=== PATIENT | female | born 1985 | race Caucasian/White ===

== ENCOUNTER 2017-10-21 14:12 | Emergency (ER) | payer SELFPAY ==
[2017-10-21] MEDS: LIDOCAINE WITH 8.4% SOD BICARB 3 ML DISP.SYRIN. INJ (13:40)
[2017-10-22 14:33] LABS: CHLAMYDIA PROBE Negative (Negative); GC PROBE Negative (Negative)
== END 2017-10-21 16:20 | disposition left against medical advice (07) ==
LOC: ER 14:12
DX: L02.411 Cutaneous abscess of right axilla (principal); N89.8 Other specified noninflammatory disorders of vagina; K21.9 Gastro-esophageal reflux disease without esophagitis; F17.210 Nicotine dependence, cigarettes, uncomplicated; Z88.6 Allergy status to analgesic agent
CPT/HCPCS: 10060; 87071; 87075; 87491; 87591; 99284; Q0111

== ENCOUNTER 2019-08-25 12:04 | Emergency (ER) | payer SELFPAY ==
[2017-10-21 14:48] VITALS: BP 117/72
== END 2019-08-25 12:11 | disposition left against medical advice (07) ==
LOC: ER 12:04
DX: S89.90XA Unspecified injury of unspecified lower leg, initial encounter (principal); Z53.21 Procedure and treatment not carried out due to patient leaving prior to being seen by health care provider; V29.88XA Motorcycle rider (driver) (passenger) injured in other specified transport accidents, initial encounter; Y93.89 Activity, other specified; Y92.488 Other paved roadways as the place of occurrence of the external cause; Y99.8 Other external cause status